=== PATIENT | male | born 1990 | race Caucasian/White ===

== ENCOUNTER 2017-12-25 16:18 | Emergency (ER) | payer BC ==
[~2017-12-25] VITALS: Ht 182.9 cm; Wt 78.9 kg
[2017-12-25 16:48] LABS: Source, Urine Clean Catch
[2017-12-25 16:50] LABS: BASOPHILS ABSOLUTE AUTO 0.05 K/mm3 (0.00-0.23); BASOPHILS PERCENT AUTO 1 % (0-2); EOSINOPHILS ABSOLUTE AUTO 0.25 K/mm3 (0.00-0.68); EOSINOPHILS PERCENT AUTO 4 % (0-6); Hemoglobin 13.4 g/dL (13.5-17.5); IMMATURE GRAN ABSOLUTE AUTO 0.02 K/mm3 (0.00-0.10); IMMATURE GRAN PERCENT AUTO 0 % (0-1); LYMPHOCYTES ABSOLUTE AUTO 1.28 K/mm3 (0.84-5.20); LYMPHOCYTES PERCENT AUTO 18 % (21-46); MONOCYTES ABSOLUTE AUTO 0.62 K/mm3 (0.16-1.47); MONOCYTES PERCENT AUTO 9 % (4-13); Mean Corpuscular HGB 30.9 pg (26.0-34.0); Mean Corpuscular HGB Conc 34.4 g/dL (31.5-36.5); Mean Corpuscular Volume 90 fL (80-100); Mean Platelet Volume 10.2 fL (9.1-12.4); NEUTROPHILS ABSOLUTE AUTO 4.96 K/mm3 (1.96-9.15); NEUTROPHILS PERCENT AUTO 69 % (41-73); Platelet Count 315 K/mm3 (150-400); RDW Standard Deviation 39.4 fL (35.1-46.3); Red Blood Cell Count 4.33 M/mm3 (4.30-5.90); White Blood Cell Count 7.18 K/mm3 (4.00-11.30)
[2017-12-25 16:52] LABS: Appearance, Urine Clear (Clear); Bilirubin, Urine Neg (Neg); Blood, Urine Neg (Neg); Color, Urine Yellow (P-Yellow); Glucose Qualitative, Urine Neg (Neg); Ketones, Urine Neg (Neg); Leukocyte Esterase, Urine Neg (Neg); Nitrite, Urine Neg (Neg); Protein, Urine Neg (Neg); Urobilinogen, Urine NORM (Normal)
[2017-12-25 17:07] LABS: Alanine Aminotransfer (ALT/SGP 22 U/L (12-78); Albumin/Globulin Ratio 1.1 (0.8-1.8); Alk Phos 68 U/L (50-136); Anion Gap 5 mmol/L (6-16); Aspartate Aminotrans (AST/SGOT 16 U/L (12-37); Bilirubin, Total 0.6 mg/dL (0.1-1.0); Blood Urea Nitrogen 11 mg/dL (8-24); Bun/Creatinine Ratio 10.8 (12.0-20.0); CO2, Blood 29 mmol/L (21-32); Calcium, Blood 9.6 mg/dL (8.5-10.1); Chloride, Blood 106 mmol/L (98-108); Creatinine, Blood 1.02 mg/dL (0.60-1.20); Globulin, Blood 3.5 g/dL (2.2-4.0); Glomerular Filtration Rate >60 (60-); Glucose, Blood 82 mg/dL (70-99); Potassium, Blood 3.9 mmol/L (3.5-5.5); Sodium, Blood 140 mmol/L (136-145); Total Protein, Blood 7.5 g/dL (6.4-8.2)
[2017-12-25] MEDS ORDERED: Zofran Odt4 MG PO (20:36)
[2017-12-25] MEDS ORDERED: Protonix40 MG PO (20:36)
== END 2017-12-25 20:53 | disposition home or self-care (01) ==
LOC: ER 16:18
PROVIDERS: Physician Assistant
DX: K29.70 Gastritis, unspecified, without bleeding (principal); Z88.0 Allergy status to penicillin; Z88.5 Allergy status to narcotic agent; F17.200 Nicotine dependence, unspecified, uncomplicated
CPT/HCPCS: 80053; 81003; 83690; 85025; 99283

== ENCOUNTER 2018-05-10 23:35 | Emergency (ER) | payer BC ==
[~2018-05-10] VITALS: Ht 185.4 cm; Wt 74.8 kg
[~2018-05-10 23:35] MED LIST: Protonix40 MG PO; Zofran Odt4 MG PO
[2018-05-11] MEDS ORDERED: Prednisone20 MG PO (01:40)
[2018-05-11] MEDS ORDERED: IMPOYZ60 GM TOP (01:40)
== END 2018-05-11 01:25 | disposition home or self-care (01) ==
LOC: ER 23:35
DX: L23.7 Allergic contact dermatitis due to plants, except food (principal); F17.200 Nicotine dependence, unspecified, uncomplicated; Z88.0 Allergy status to penicillin; Z88.5 Allergy status to narcotic agent; Z79.899 Other long term (current) drug therapy
CPT/HCPCS: 99282

== ENCOUNTER 2021-03-11 11:18 | Inpatient (IN) | payer BC ==
[~2021-03-11] VITALS: Ht 185.4 cm; Wt 83.9 kg
[~2021-03-11 11:18] MED LIST changes: +IMPOYZ60 GM TOP; +Prednisone20 MG PO
[2021-03-11 13:56] LABS: BASOPHILS ABSOLUTE AUTO 0.07 K/mm3 (0.00-0.23); BASOPHILS PERCENT AUTO 1 % (0-2); EOSINOPHILS ABSOLUTE AUTO 0.12 K/mm3 (0.00-0.68); EOSINOPHILS PERCENT AUTO 1 % (0-6); Hemoglobin 14.8 g/dL (13.5-17.5); IMMATURE GRAN ABSOLUTE AUTO 0.05 K/mm3 (0.00-0.10); IMMATURE GRAN PERCENT AUTO 0 % (0-1); LYMPHOCYTES ABSOLUTE AUTO 1.14 K/mm3 (0.84-5.20); LYMPHOCYTES PERCENT AUTO 7 % (21-46); MONOCYTES ABSOLUTE AUTO 0.85 K/mm3 (0.16-1.47); MONOCYTES PERCENT AUTO 6 % (4-13); Mean Corpuscular HGB 30.7 pg (26.0-34.0); Mean Corpuscular HGB Conc 35.2 g/dL (31.5-36.5); Mean Corpuscular Volume 87 fL (80-100); Mean Platelet Volume 10.1 fL (9.1-12.4); NEUTROPHILS ABSOLUTE AUTO 13.29 K/mm3 (1.96-9.15); NEUTROPHILS PERCENT AUTO 86 % (41-73); Platelet Count 369 K/mm3 (150-400); RDW Coefficient Variation 11.8 % (11.7-14.2); RDW Standard Deviation 37.8 fL (35.1-46.3); Red Blood Cell Count 4.82 M/mm3 (4.30-5.90); White Blood Cell Count 15.52 K/mm3 (4.00-11.30)
[2021-03-11 14:06] LABS: Alanine Aminotransfer (ALT/SGP 21 U/L (12-78); Albumin/Globulin Ratio 1.2 (0.8-1.8); Alk Phos 58 U/L (50-136); Anion Gap 8 mmol/L (6-16); Aspartate Aminotrans (AST/SGOT 14 U/L (12-37); Bilirubin, Direct 0.2 mg/dL (0.0-0.3); Bilirubin, Indirect 0.7 mg/dL (0.1-0.7); Bilirubin, Total 0.9 mg/dL (0.1-1.0); Blood Urea Nitrogen 13 mg/dL (8-24); Bun/Creatinine Ratio 13.2 (12.0-20.0); CO2, Blood 31 mmol/L (21-32); Calcium, Blood 9.4 mg/dL (8.5-10.1); Chloride, Blood 101 mmol/L (98-108); Creatinine, Blood 0.98 mg/dL (0.60-1.20); Globulin, Blood 3.3 g/dL (2.2-4.0); Glomerular Filtration Rate >60 (60-); Glucose, Blood 99 mg/dL (70-99); Magnesium, Blood 1.7 mg/dL (1.6-2.4); Potassium, Blood 3.4 mmol/L (3.5-5.5); Sodium, Blood 140 mmol/L (136-145); Total Protein, Blood 7.3 g/dL (6.4-8.2)
[2021-03-11 17:06] LABS: Source, Urine Clean Catch
[2021-03-11 17:08] LABS: Bilirubin, Urine Neg (Neg); Blood, Urine Neg (Neg); Glucose Qualitative, Urine Neg (Neg); Ketones, Urine 1+ (Neg); Leukocyte Esterase, Urine Neg (Neg); Nitrite, Urine Neg (Neg); Protein, Urine 2+ (Neg); Specific Gravity, Urine 1.015 (1.003-1.022); Urobilinogen, Urine NORM (Normal)
[2021-03-11 17:17] LABS: Amorphous Heavy (0-Heavy); Appearance, Urine Hazy (Clear); Bacteria Rare /hpf; Color, Urine Yellow (P-Yellow); Red Blood Cells, Urine 0-2 /hpf (0-2); Squamous Epithelial Cells Rare /hpf (Few); White Blood Cells, Urine 0-2 /hpf (0-5)
[2021-03-11 17:19] LABS: SARS-Cov-2 (COVID-19) PCR, MMC NEGATIVE (NEGATIVE)
--- NOTE | 2021-03-11 21:48 | NUR ---
REASSESSMENT FOR 2ND POTASSIUM BAG DONE AFTER BAG WAS DONE INFUSING.
--- NOTE | 2021-03-12 00:02 | NUR ---
PT OFFERED WATER BEFORE 12AM, THEN FLUIDS REMOVED FROM SIDE TABLE AND PT INSTRUCTED IT IS NOW MIDNIGHT SO NO MORE FLUIDS UNTIL PROCEDURE. PT GIVEN EAR PLUGS, EYE COVERING TO SLEEP, ALSO GIVEN TOOTH PASTE/TOOTH BRUSH/CHAPSTICK. URINAL EMPTIED FOR 1100 CLEAR YELLOW URINE, RETURNED URINAL TO BED FOR PT. BED IN LOW, LOCKED POSITION, CALL LIGHT IN REACH.
--- NOTE | 2021-03-12 04:47 | NUR ---
PT SLEPT WELL THROUGH OUT THE NIGHT WITH EAR PLUGS IN. NO C/O NAUSEA OR VOMITING OR PAIN. LR IV FLUID BOLUS 1 LITER AND D5 1/2 NS @ 100CC/HR GIVEN FOR 10 HOURS. AM LABS TO BE DRAWN SHORTLY. NPO AFTER MIDNIGHT DUE TO EGD TODAY. BED IN LOW, LOCKED POSITION, CALL LIGHT IN REACH.
[2021-03-12 06:35] LABS: BASOPHILS ABSOLUTE AUTO 0.09 K/mm3 (0.00-0.23); BASOPHILS PERCENT AUTO 1 % (0-2); EOSINOPHILS ABSOLUTE AUTO 0.47 K/mm3 (0.00-0.68); EOSINOPHILS PERCENT AUTO 6 % (0-6); Hematocrit 38.3 % (37.0-53.0); Hemoglobin 12.7 g/dL (13.5-17.5); IMMATURE GRAN ABSOLUTE AUTO 0.01 K/mm3 (0.00-0.10); IMMATURE GRAN PERCENT AUTO 0 % (0-1); LYMPHOCYTES PERCENT AUTO 24 % (21-46); MONOCYTES ABSOLUTE AUTO 0.65 K/mm3 (0.16-1.47); MONOCYTES PERCENT AUTO 9 % (4-13); Mean Corpuscular HGB Conc 33.2 g/dL (31.5-36.5); Mean Corpuscular Volume 90 fL (80-100); Mean Platelet Volume 9.9 fL (9.1-12.4); NEUTROPHILS ABSOLUTE AUTO 4.55 K/mm3 (1.96-9.15); NEUTROPHILS PERCENT AUTO 60 % (41-73); Platelet Count 309 K/mm3 (150-400); RDW Standard Deviation 39.5 fL (35.1-46.3); Red Blood Cell Count 4.24 M/mm3 (4.30-5.90); White Blood Cell Count 7.57 K/mm3 (4.00-11.30)
[2021-03-12 07:01] LABS: Anion Gap 2 mmol/L (6-16); Blood Urea Nitrogen 8 mg/dL (8-24); CO2, Blood 31 mmol/L (21-32); Chloride, Blood 107 mmol/L (98-108); Glomerular Filtration Rate >60 (60-); Glucose, Blood 81 mg/dL (70-99); Potassium, Blood 3.8 mmol/L (3.5-5.5); Sodium, Blood 140 mmol/L (136-145)
[2021-03-12 07:04] LABS: Calcium, Blood 7.4 mg/dL (8.5-10.1)
--- NOTE | 2021-03-12 09:10 | NUR ---
PATIENT TAKEN VIA STRETCHER BY ENDO RN TO GO GET UPPER ENDOSCOPY PERFORMED. IVF DISCONNECTED PER ENDO AND SHERRI.
--- NOTE | 2021-03-12 10:41 | NUR ---
PATIENT BACK FROM ENDOSCOPY. PATIENT STATES HE IS STILL TIRED FROM PROCEDURE. PATIENT RESTING IN BED WITH CALL LIGHT IN REACH. DENIES PAIN OR NEEDS AT PRESENT.
--- NOTE | 2021-03-12 11:07 | NUR ---
IMAGING CALLED TO SAY THAT PATIENT WILL HAVE CT WITH PO CONTRAST AROUND 1430. NOTIFIED PATIENT HE NEEDS TO REMAIN NPO FOR PROCEDURE. HE STATES UNDERSTANDING. CALL LIGHT IN REACH.
--- NOTE | 2021-03-12 12:32 | NUR ---
EDUCATED PATIENT ON PLAN FOR DRINK PREP FOR CT TO START AT 1300 AND EXPLAINED TIMELINE FOR DRINKING PER INSTRUCTION FROM RADIOLOGY. PATIENT DENIES PAIN OR NEEDS AT PRESENT. PATIENT GIVEN ZOFRAN PER ORDERS TO PREVENT NAUSEA FOR PREP DRINKING IN 30 MIN.
--- NOTE | 2021-03-12 13:36 | NUR ---
PATIENT DRINKING CT PREP ACCORDING TO INSTRUCTIONS. NO NAUSEA NOTED. WILL CONTINUE TI CHECK ON PATIENTS PROGRESS. CALL LIGHT IN REACH.
--- NOTE | 2021-03-12 14:29 | NUR ---
PATIENT DRINKING LAST PART OF PREP WITH OUT DIFFICULTY. DENIES NAUSEA OR PAIN. CALL LIGHT IN REACH.
--- NOTE | 2021-03-12 14:50 | NUR ---
PATIENT TAKEN VIA WC BY TRANSPORT DOWN TO CT. PATIENT WAS ABLE TO DRINK ALL PREP DRINK ORDERED PER INSTRUCTIONS.
--- NOTE | 2021-03-12 15:21 | NUR ---
PATIENT BACK IN ROOM FROM IMAGING. RESTING IN BED. CALL LIGHT IN REACH. DENIES NEEDS AT PRESENT.
--- NOTE | 2021-03-12 17:32 | NUR ---
PATIENT TOLERATING FULL LIQUID DIET WELL. PATIENT IS OCCASSIONALLY COMPLAINING OF EPISODES OF DIARHHEA.
[2021-03-12] MEDS ORDERED: OMEP20ER PO (21:46)
--- NOTE | 2021-03-12 22:26 | NUR ---
LATE ENTRY: I INTRODUCED MYSELF TO PATIENT AFTER RECIEVING REPORT FROM RN,PT A PLEASANT 30 YEAR OLD MALE, [id number], WITH STABLE VS. PT DENIED PAIN AND NAUSEA,WAS TOLERATING PO CLEAR FLUIDS WELL AND APPEARS TO HAVE AN APPETITE TODAY. WHICH HE HAD'NT YESTERDAY PER PT.PT STATED HIS BM WAS RUNNY TONIGHT.IV WNL IN RIGHT FOREARM SALINE LOCKED. PT EXPRESSED HIS WISHES TO GO HOME TONIGHT.THIS RN CONSULTED WITH ,, AND VIA TELEPHONE. VO GIVEN BY ALL MD'S AND ALL IN AGREEMENT THAT PT COULD BE DISCHARGED TO HOME TONIGHT. *D/C INSTRUCTIONS GIVEN,VSS, BELONGINGS GIVEN, CLEAR FLUIDS AND SNACKS PROVIDED,D/C IV, WALKED PT TO FAMILY WITHOUT COMPLAINT. PT WAS GRATEFUL AND IN GOOD SPIRITS.
--- NOTE | 2021-03-12 22:50 | NUR ---
PT DISCHARGE FROM [facility] TO HOME AT 2221.
--- NOTE | 2021-03-15 07:23 | NUR ---
03/15/21 0722 Sid Larson PATIENT DETERMINED TO BE ASA APPROPRIATE FOR PROPOFOL SEDATION PRIOR TO START OF PROCEDURE BY DR. buitrago. Bite Block Placed. 3-LEAD EKG REVIEWED WITH PHYSICIAN PRIOR TO START OF PROCEDURE. Patient to ENDO 1. History, Chart, Medications and Allergies reviewed before start of procedure. MONITOR INTACT WITH CONTINUOUS PULSE OXIMETRY AND INTERMITTENT BP. O2 VIA N/C INTACT THROUGHOUT SEDATION/PROCEDURE.
== END 2021-03-12 22:20 | disposition home or self-care (01) | DRG 386 ==
LOC: ER 11:18 → ORSCIP 16:29 → MEDS 16:29 → ORSCIP 18:32
PROVIDERS: Internal Medicine Gastroenterology; Student in an Organized Health Care Education/Training Program; ADMIT Internal Medicine
PROC: 0DB68ZX Excision of Stomach, Via Natural or Artificial Opening Endoscopic, Diagnostic (ICD-10-PCS; principal; 2021-03-12 08:00)
PROC: 0D798ZZ Dilation of Duodenum, Via Natural or Artificial Opening Endoscopic (ICD-10-PCS; 2021-03-12 08:00)
DX: K50.018 Crohn's disease of small intestine with other complication (principal); K22.10 Ulcer of esophagus without bleeding; E87.6 Hypokalemia; Z20.822 Contact with and (suspected) exposure to COVID-19; Z88.0 Allergy status to penicillin; Z88.5 Allergy status to narcotic agent; Z79.899 Other long term (current) drug therapy; K29.70 Gastritis, unspecified, without bleeding; K26.9 Duodenal ulcer, unspecified as acute or chronic, without hemorrhage or perforation
CPT/HCPCS: 36415; 74177; 80048; 80076; 81001; 83690; 83735; 85025; 85651; 86141; 88305; 88341; 88342; 96365-59; 96375; 99285-25; A9270; C1726; C9113; J1885; J2250; J2405; J2704; J3480; J7030; J7042; J7120; Q9967; U0004

== ENCOUNTER 2021-04-27 13:50 | Day surgery (SDC) | payer BC ==
[~2021-04-27] VITALS: Ht 185.4 cm; Wt 78.4 kg
[~2021-04-27 13:50] MED LIST changes: +OMEP20ER PO
[2021-04-27] MEDS ORDERED: HUMIRA40 MG/0.2 INJ (14:13)
== END 2021-04-27 15:48 | disposition home or self-care (01) ==
LOC: ORSCSDS 13:50
PROVIDERS: Internal Medicine Gastroenterology
PROC: 0DJ08ZZ Inspection of Upper Intestinal Tract, Via Natural or Artificial Opening Endoscopic (ICD-10-PCS; principal; 2021-04-27 15:00)
DX: K26.9 Duodenal ulcer, unspecified as acute or chronic, without hemorrhage or perforation (principal); R11.2 Nausea with vomiting, unspecified; K31.1 Adult hypertrophic pyloric stenosis; K20.90 Esophagitis, unspecified without bleeding; Z87.891 Personal history of nicotine dependence; Z79.899 Other long term (current) drug therapy
CPT/HCPCS: J0330; J0461; J2250; J2405; J2704; J7120

== ENCOUNTER 2021-05-02 07:29 | Day surgery (SDC) | payer BC ==
[~2021-05-02] VITALS: Ht 185.4 cm; Wt 77.1 kg
[~2021-05-02 07:29] MED LIST changes: +HUMIRA40 MG/0.2 INJ
--- NOTE | 2021-05-02 10:23 | NUR ---
05/02/[id number] IN SPEAKING TO PT.
== END 2021-05-02 10:30 | disposition home or self-care (01) ==
LOC: ORSCSDS 07:29
PROVIDERS: Internal Medicine Gastroenterology
PROC: 0DB78ZX Excision of Stomach, Pylorus, Via Natural or Artificial Opening Endoscopic, Diagnostic (ICD-10-PCS; principal; 2021-05-02 08:45)
PROC: 0DB58ZX Excision of Esophagus, Via Natural or Artificial Opening Endoscopic, Diagnostic (ICD-10-PCS; principal; 2021-05-02 08:45)
PROC: 0D798ZZ Dilation of Duodenum, Via Natural or Artificial Opening Endoscopic (ICD-10-PCS; principal; 2021-05-02 08:45)
PROC: 0DB98ZX Excision of Duodenum, Via Natural or Artificial Opening Endoscopic, Diagnostic (ICD-10-PCS; principal; 2021-05-02 08:45)
DX: K31.5 Obstruction of duodenum (principal); R11.2 Nausea with vomiting, unspecified; K29.80 Duodenitis without bleeding; K29.70 Gastritis, unspecified, without bleeding; K20.90 Esophagitis, unspecified without bleeding; K50.90 Crohn's disease, unspecified, without complications; Z80.0 Family history of malignant neoplasm of digestive organs; Z87.891 Personal history of nicotine dependence; Z79.899 Other long term (current) drug therapy
CPT/HCPCS: C1726; J2250; J2704; J7120

== ENCOUNTER 2021-07-14 06:42 | Day surgery (SDC) | payer BC ==
[~2021-07-14] VITALS: Ht 185.4 cm; Wt 82.6 kg
--- NOTE | 2021-07-14 09:17 | NUR ---
07/14/21 0918 Kita Armando PT. STATES " A LITTLE BIT OF A SORE THROAT." PT. BLOWING HIS NOSE. PT. VERBALIZES HAVING SOME BLOOD ON THE TISSUE AFTER BLOWING HIS NOSE. PT. INSTRUCTED IT COULD BE FROM THE 02 DRYING HIS NOSE. PT. COUGHING OFF & ON WITHOUT ANY PRODUCTION.
== END 2021-07-14 09:00 | disposition home or self-care (01) ==
LOC: ORSCSDS 06:42
PROVIDERS: Internal Medicine Gastroenterology
PROC: 0D758ZZ Dilation of Esophagus, Via Natural or Artificial Opening Endoscopic (ICD-10-PCS; principal; 2021-07-14 08:00)
DX: K31.5 Obstruction of duodenum (principal); K20.90 Esophagitis, unspecified without bleeding; Z87.891 Personal history of nicotine dependence; Z79.899 Other long term (current) drug therapy
CPT/HCPCS: C1726; J2250; J2704; J7120

== ENCOUNTER 2021-08-03 12:37 | Day surgery (SDC) | payer BC ==
[~2021-08-03] VITALS: Ht 185.4 cm; Wt 80.6 kg
[2021-08-03] MEDS ORDERED: PRED5 (13:07)
== END 2021-08-03 16:30 | disposition home or self-care (01) ==
LOC: ORSCSDS 12:37
PROVIDERS: Internal Medicine Gastroenterology
PROC: 0D798ZZ Dilation of Duodenum, Via Natural or Artificial Opening Endoscopic (ICD-10-PCS; principal; 2021-08-03 13:45)
DX: K26.7 Chronic duodenal ulcer without hemorrhage or perforation (principal); K31.7 Polyp of stomach and duodenum; K31.5 Obstruction of duodenum; B37.81 Candidal esophagitis; K21.9 Gastro-esophageal reflux disease without esophagitis; K50.90 Crohn's disease, unspecified, without complications; U07.1 COVID-19
CPT/HCPCS: C1726; J0330; J1100; J2405; J2704; J7120

== ENCOUNTER 2021-08-30 10:42 | Day surgery (SDC) | payer BC ==
[~2021-08-30] VITALS: Ht 185.4 cm; Wt 84.4 kg
[~2021-08-30 10:42] MED LIST changes: +PRED5
== END 2021-08-30 12:46 | disposition home or self-care (01) ==
LOC: ORSCSDS 10:42
PROVIDERS: Internal Medicine Gastroenterology
PROC: 0D798ZZ Dilation of Duodenum, Via Natural or Artificial Opening Endoscopic (ICD-10-PCS; principal; 2021-08-30 12:00)
DX: K26.7 Chronic duodenal ulcer without hemorrhage or perforation (principal); K31.5 Obstruction of duodenum; Z80.0 Family history of malignant neoplasm of digestive organs; K21.9 Gastro-esophageal reflux disease without esophagitis; Z86.16 Personal history of COVID-19; Z87.891 Personal history of nicotine dependence; Z79.899 Other long term (current) drug therapy
CPT/HCPCS: C1726; J0461; J2405; J2704; J7120

== ENCOUNTER 2022-07-24 13:58 | Emergency (ER) | payer BC, OTHER ==
[~2022-07-24] VITALS: Ht 182.9 cm; Wt 86.2 kg
[~2022-07-24 13:58] MED LIST changes: +STELARA90 MG/1 ML
[2022-07-24 15:41] LABS: BASOPHILS ABSOLUTE AUTO 0.05 K/mm3 (0.00-0.23); BASOPHILS PERCENT AUTO 1 % (0-2); EOSINOPHILS ABSOLUTE AUTO 0.17 K/mm3 (0.00-0.68); EOSINOPHILS PERCENT AUTO 3 % (0-6); Hematocrit 42.6 % (37.0-53.0); Hemoglobin 14.4 g/dL (13.5-17.5); IMMATURE GRAN ABSOLUTE AUTO 0.01 K/mm3 (0.00-0.10); IMMATURE GRAN PERCENT AUTO 0 % (0-1); LYMPHOCYTES ABSOLUTE AUTO 1.85 K/mm3 (0.84-5.20); LYMPHOCYTES PERCENT AUTO 33 % (21-46); MONOCYTES PERCENT AUTO 5 % (4-13); Mean Corpuscular HGB 30.4 pg (26.0-34.0); Mean Corpuscular HGB Conc 33.8 g/dL (31.5-36.5); Mean Corpuscular Volume 90 fL (80-100); Mean Platelet Volume 10.3 fL (9.1-12.4); NEUTROPHILS ABSOLUTE AUTO 3.24 K/mm3 (1.96-9.15); NEUTROPHILS PERCENT AUTO 58 % (41-73); Platelet Count 256 K/mm3 (150-400); RDW Coefficient Variation 13.8 % (11.7-14.2); RDW Standard Deviation 45.9 fL (35.1-46.3); Red Blood Cell Count 4.73 M/mm3 (4.30-5.90); White Blood Cell Count 5.62 K/mm3 (4.00-11.30)
[2022-07-24 15:59] LABS: Albumin, Blood 3.9 g/dL (3.4-5.0); Albumin/Globulin Ratio 1.2 (0.8-1.8); Bilirubin, Total 0.5 mg/dL (0.1-1.0); Bun/Creatinine Ratio 11.1 (12.0-20.0); Calcium, Blood 8.9 mg/dL (8.5-10.1); Creatinine, Blood 0.9 mg/dL (0.60-1.20); Globulin, Blood 3.2 g/dL (2.2-4.0); Potassium, Blood 3.9 mmol/L (3.5-5.5); Total Protein, Blood 7.1 g/dL (6.4-8.2)
[2022-07-24 16:31] LABS: Source, Urine Clean Catch
[2022-07-24 16:36] LABS: Appearance, Urine Clear (Clear); Bilirubin, Urine Neg (Neg); Blood, Urine Neg (Neg); Color, Urine Yellow (P-Yellow); Glucose Qualitative, Urine Neg (Neg); Ketones, Urine Neg (Neg); Leukocyte Esterase, Urine Neg (Neg); Nitrite, Urine Neg (Neg); Protein, Urine Neg (Neg); Urobilinogen, Urine NORM (Normal)
[2022-07-24] MEDS ORDERED: Bentyl20 MG PO (19:39)
[2022-07-24] MEDS ORDERED: DOCU100 PO (19:39)
== END 2022-07-24 19:51 | disposition home or self-care (01) ==
LOC: ER 13:58
PROVIDERS: Physician Assistant
DX: R10.9 Unspecified abdominal pain (principal); K59.00 Constipation, unspecified; Z88.0 Allergy status to penicillin; Z88.5 Allergy status to narcotic agent; Z79.899 Other long term (current) drug therapy; Z87.891 Personal history of nicotine dependence
CPT/HCPCS: 36415; 74177; 80053; 81003; 83690; 85025; Q9967

== ENCOUNTER 2022-07-28 04:21 | Emergency (ER) | payer BC, OTHER ==
[~2022-07-28] VITALS: Ht 182.9 cm; Wt 86.2 kg
[~2022-07-28 04:21] MED LIST changes: +Bentyl20 MG PO; +DOCU100 PO
[2022-07-28] MEDS ORDERED: VALACYCLOVIR1000 MG PO (04:37)
[2022-07-28] MEDS ORDERED: Percocet 5-3251 EACH PO (04:37)
== END 2022-07-28 04:55 | disposition home or self-care (01) ==
LOC: ER 04:21
DX: B02.9 Zoster without complications (principal); Z88.0 Allergy status to penicillin; Z88.5 Allergy status to narcotic agent; Z79.899 Other long term (current) drug therapy; Z87.891 Personal history of nicotine dependence
CPT/HCPCS: A9270

== ENCOUNTER → 2023-02-28 | Outpatient (CLI) | payer BC, OTHER ==
[~2023-02-28] MED LIST changes: +Percocet 5-3251 EACH PO; +VALACYCLOVIR1000 MG PO
== END | disposition home or self-care (01) ==
LOC: LAB 09:57 → LAB SHORT 09:57
DX: K50.919 Crohn's disease, unspecified, with unspecified complications (principal); K26.9 Duodenal ulcer, unspecified as acute or chronic, without hemorrhage or perforation; K63.5 Polyp of colon; E61.1 Iron deficiency
CPT/HCPCS: 83993